=== PATIENT | male | born 1945 | race Caucasian/White ===

== ENCOUNTER → 2018-11-06 | Outpatient (CLI) | payer OTHER ==
[~2018-11-06] MED LIST: ACET325 PO; AMLO5 PO; ASCORBIC ACID PO; ASPI81CH PO; Advil200 M1 PO; CETI5 PO; IRON PO; LOSA50 PO; MULVITMIND PO; OMEG1CAP30 PO; OMEPRAZOLE MAGN20 MG PO; VITAMIN B COMPLEX PO
== END | disposition home or self-care (01) ==
LOC: LAB 18:13 → LAB SHORT 18:13
DX: R10.9 Unspecified abdominal pain (principal)
CPT/HCPCS: 87086

== ENCOUNTER 2019-05-11 08:52 | Day surgery (SDC) | payer OTHER ==
[~2019-05-11] VITALS: Ht 172.7 cm; Wt 64.9 kg
--- NOTE | 2019-05-11 12:42 | NUR ---
05/11/19 1241 Pia Nguyen 20ML NACL WITH 1ML INDIGO USED FOR POLYP REMOVALS.
--- NOTE | 2019-05-11 13:30 | NUR ---
05/11/19 3940 Niki Ribeiro LATE ENTRY---DURING STEP DOWN RECOVERY, PATIENT KEPT SAYING HE FELT "OUT OF SORTS" AND WHEN QUESTIONED MORE ABOUT THIS HE ADMITS TO BEING A LITTLE DIZZY, WASN'T READY TO GET DRESSED AND ASKED FOR MORE TIME TO "SHAKE THE COBWEBS OUT". PATIENT WAS ALLOWED MORE TIME AND WAS WALKED OUT WITH STAND BY ASSIST
== END 2019-05-11 13:15 | disposition home or self-care (01) ==
LOC: ORSCSDS 08:52
PROVIDERS: Student in an Organized Health Care Education/Training Program
PROC: 0DBM8ZX Excision of Descending Colon, Via Natural or Artificial Opening Endoscopic, Diagnostic (ICD-10-PCS; principal; 2019-05-11 10:30)
PROC: 0DBN8ZX Excision of Sigmoid Colon, Via Natural or Artificial Opening Endoscopic, Diagnostic (ICD-10-PCS; principal; 2019-05-11 10:30)
PROC: 0DBK8ZX Excision of Ascending Colon, Via Natural or Artificial Opening Endoscopic, Diagnostic (ICD-10-PCS; principal; 2019-05-11 10:30)
PROC: 0DBP8ZX Excision of Rectum, Via Natural or Artificial Opening Endoscopic, Diagnostic (ICD-10-PCS; principal; 2019-05-11 10:30)
PROC: 0DBH8ZX Excision of Cecum, Via Natural or Artificial Opening Endoscopic, Diagnostic (ICD-10-PCS; principal; 2019-05-11 10:30)
DX: R15.0 Incomplete defecation (principal); Z86.010 Personal history of colon polyps; D12.2 Benign neoplasm of ascending colon; D12.0 Benign neoplasm of cecum; D12.4 Benign neoplasm of descending colon; D12.5 Benign neoplasm of sigmoid colon; K63.5 Polyp of colon; K57.30 Diverticulosis of large intestine without perforation or abscess without bleeding; K64.8 Other hemorrhoids; I10 Essential (primary) hypertension; Z79.899 Other long term (current) drug therapy; Z79.82 Long term (current) use of aspirin
CPT/HCPCS: 88305; J2704; J7120

== ENCOUNTER → 2020-05-02 | Outpatient (CLI) | payer OTHER ==
[2020-05-02 21:36] LABS: BASOPHILS ABSOLUTE AUTO 0.04 K/mm3 (0.00-0.23); BASOPHILS PERCENT AUTO 1 % (0-2); EOSINOPHILS ABSOLUTE AUTO 0.22 K/mm3 (0.00-0.68); EOSINOPHILS PERCENT AUTO 3 % (0-6); Hematocrit 39.5 % (37.0-53.0); Hemoglobin 12.8 g/dL (13.5-17.5); IMMATURE GRAN ABSOLUTE AUTO 0.01 K/mm3 (0.00-0.10); IMMATURE GRAN PERCENT AUTO 0 % (0-1); LYMPHOCYTES ABSOLUTE AUTO 1.77 K/mm3 (0.84-5.20); LYMPHOCYTES PERCENT AUTO 22 % (21-46); MONOCYTES ABSOLUTE AUTO 0.73 K/mm3 (0.16-1.47); MONOCYTES PERCENT AUTO 9 % (4-13); Mean Corpuscular HGB 28.5 pg (26.0-34.0); Mean Corpuscular HGB Conc 32.4 g/dL (31.5-36.5); Mean Corpuscular Volume 88 fL (80-100); NEUTROPHILS ABSOLUTE AUTO 5.12 K/mm3 (1.96-9.15); NEUTROPHILS PERCENT AUTO 65 % (41-73); Platelet Count 359 K/mm3 (150-400); RDW Coefficient Variation 12.6 % (11.7-14.2); Red Blood Cell Count 4.49 M/mm3 (4.30-5.90); White Blood Cell Count 7.89 K/mm3 (4.00-11.30)
[2020-05-02 21:48] LABS: Alanine Aminotransfer (ALT/SGP 20 U/L (12-78); Albumin, Blood 4.1 g/dL (3.4-5.0); Albumin/Globulin Ratio 1.1 (0.8-1.8); Alk Phos 94 U/L (50-136); Anion Gap 4 mmol/L (6-16); Aspartate Aminotrans (AST/SGOT 12 U/L (12-37); Bilirubin, Total 0.3 mg/dL (0.1-1.0); Blood Urea Nitrogen 11 mg/dL (8-24); CO2, Blood 29 mmol/L (21-32); Calcium, Blood 9.2 mg/dL (8.5-10.1); Chloride, Blood 108 mmol/L (98-108); Creatinine, Blood 0.73 mg/dL (0.60-1.20); Globulin, Blood 3.9 g/dL (2.2-4.0); Glomerular Filtration Rate >60 (60-); Glucose, Blood 93 mg/dL (70-99); Sodium, Blood 141 mmol/L (136-145)
== END | disposition home or self-care (01) ==
LOC: LAB 20:07 → LAB SHORT 20:07
PROVIDERS: Family Medicine
DX: R10.9 Unspecified abdominal pain (principal)
CPT/HCPCS: 80053; 85025; 87086

== ENCOUNTER 2020-09-27 09:38 | Day surgery (SDC) | payer OTHER ==
[~2020-09-27] VITALS: Ht 172.7 cm; Wt 68.1 kg
[2020-09-27] MEDS ORDERED: FLONASE ALLERG9.9 M2 (10:35)
--- NOTE | 2020-09-27 10:38 | NUR ---
09/27/20 1038 Tonya Gaston PLEDGGAVINO PLACED IN RT EYE 1019, PT TOLERATED PLACEMENT WELL
== END 2020-09-27 11:44 | disposition home or self-care (01) ==
LOC: ORSCSDS 09:38
PROVIDERS: Counselor Professional
PROC: 08RJ3JZ Replacement of Right Lens with Synthetic Substitute, Percutaneous Approach (ICD-10-PCS; principal; 2020-09-27 10:45)
DX: H25.11 Age-related nuclear cataract, right eye (principal); I10 Essential (primary) hypertension; K21.9 Gastro-esophageal reflux disease without esophagitis; Z86.73 Personal history of transient ischemic attack (TIA), and cerebral infarction without residual deficits; Z79.82 Long term (current) use of aspirin; Z79.899 Other long term (current) drug therapy
CPT/HCPCS: A9270; J2001; J2250; J3010; V2632

== ENCOUNTER 2024-08-31 09:03 | Day surgery (SDC) | payer OTHER ==
[~2024-08-31] VITALS: Ht 172.7 cm; Wt 63.0 kg
[2024-08-31] VITALS (10 sets, daily range): BP systolic 126–150; BP diastolic 73–90
[~2024-08-31 09:03] MED LIST changes: +B-12500 MC2 PO; +FLONASE ALLERG9.9 M2; +GLUCHON PO; +LACT; +METAMUCIL; +METO25ER PO
[2024-08-31] MEDS ORDERED: Verapamil HCL 2.5 MG/ML 2ML Injection ONE (09:30)
[2024-08-31] MEDS ORDERED: NS 1,000 ML IV ONE ×2 (09:31→09:36)
[2024-08-31] MEDS ORDERED: Nitroglycerin 2 MG/20 ML BTL ONE (09:31)
[2024-08-31] MEDS ORDERED: Heparin Sodium 1000 Units/ML 10ML MDV ONE ×2 (09:31→10:35)
[2024-08-31] MEDS ORDERED: NS 250 ML IV ONE (09:31)
[2024-08-31] MEDS ORDERED: FentaNYL Citrate 50 MCG/ML 2 ML Injection ONE (09:35)
[2024-08-31] MEDS ORDERED: Midazolam HCl 1MG / ML 2ML Vial ONE (09:36)
--- NOTE | 2024-08-31 11:12 | NUR ---
pt arrives back to recovery room in bed, alert and oriented. sitting up in bed with TR Band in place with 11CC of air in band. PT site wnl, no oozing or swelling at this time. Pt. daughter to bedside. pt. vss. Dr. Mtz in to talk with pt regarding results of coronary angiogram.
--- NOTE | 2024-08-31 12:01 | NUR ---
TR band deflation intitated, 3cc removed at this time. Pt up to the bathroom to void, ambulates with out difficulty. Right radial site remains wnl.
--- NOTE | 2024-08-31 12:12 | NUR ---
TR band deflated at this time. Pt. VSS remain stable. Pt daughter remains at bedside.
--- NOTE | 2024-08-31 12:55 | NUR ---
PT AMBULATED TO BR TO VOID. R RAD TR BAND SITE NO HEMATOMA,NO PULSATILE BLEEDING WITH RIGHT WRIST BOARD IN PLACE.
--- NOTE | 2024-08-31 13:05 | NUR ---
Pt IV removed, Pt assisted to stand and get dressed. Right radial site remains wnl
--- NOTE | 2024-08-31 13:24 | NUR ---
Pt tr band removed site wnl, no oozing no hematoma. bandage placed. arm board given to pt for discharge. pt. discharge instructions reviewed with pt and family. no further questions. pt taken via wheelchair by volunteer to exit. pt daughter to drive pt home.
== END 2024-08-31 13:30 | disposition home or self-care (01) ==
LOC: MHTC 09:03
DX: I25.10 Atherosclerotic heart disease of native coronary artery without angina pectoris (principal); R94.39 Abnormal result of other cardiovascular function study; R55 Syncope and collapse; I10 Essential (primary) hypertension; E78.5 Hyperlipidemia, unspecified; K21.9 Gastro-esophageal reflux disease without esophagitis; Z79.82 Long term (current) use of aspirin; Z79.899 Other long term (current) drug therapy; Z88.5 Allergy status to narcotic agent; Z88.8 Allergy status to other drugs, medicaments and biological substances
CPT/HCPCS: 76937; 85347; 93458; 93571; 99152; 99153; C1769; C1887; C1894; J1644; J2250; J3010; J7030; J7050; Q9967

== ENCOUNTER 2024-11-30 07:11 | Day surgery (SDC) | payer OTHER ==
[2024-11-30] VITALS (19 sets, daily range): BP systolic 116–149; BP diastolic 64–86
[~2024-11-30] VITALS: Ht 172.7 cm; Wt 64.9 kg
[~2024-11-30 07:11] MED LIST changes: +ATOR10 PO
[2024-11-30] MEDS ORDERED: NS 250 ML IV ONE (07:18)
[2024-11-30] MEDS ORDERED: NS 1,000 ML IV ONE ×3 (07:18→10:11)
[2024-11-30] MEDS ORDERED: Nitroglycerin 2 MG/20 ML BTL ONE (07:18)
[2024-11-30] MEDS ORDERED: Verapamil HCL 2.5 MG/ML 2ML Injection ONE (07:18)
[2024-11-30] MEDS ORDERED: Heparin Sodium 1000 Units/ML 10ML MDV ONE ×3 (07:18→09:24)
[2024-11-30] MEDS ORDERED: CLOP75 PO (07:42)
[2024-11-30] MEDS ORDERED: Aspirin 81 MG Chew ONE (07:42)
[2024-11-30] MEDS ORDERED: Clopidogrel Bisulfate 75 MG Tab ONE (07:45)
[2024-11-30] MEDS ORDERED: Midazolam HCl 1MG / ML 2ML Vial ONE (08:00)
[2024-11-30] MEDS ORDERED: FentaNYL Citrate 50 MCG/ML 2 ML Injection ONE (08:00)
[2024-11-30] MEDS ORDERED: NS 500 ML IV ONE (09:24)
--- NOTE | 2024-11-30 10:30 | NUR ---
PATIENT BACK TO RECOVERY ROOM AT 1020 S/P PCI WITH 5 STENTS PLACED; 4 TO RCA, 1 TO PROX CIRC. PT AWAKE AND ALERT. DENIES C/O PAIN, DENIES CHEST PAIN. PT C/O FEELING COLD, WARM BLANKETS PLACED. PT HYPOTENSIVE AT END OF CASE W LAST MAP 63. FIRST BP IN RECOVERY ROOM 119/66, HR 60'S, PT DENIES SYMPTOMS. 1 LITER GIVEN IN TUBE DRAWER, ADDITIONAL 500CC NS ORDERED BY DR ROMERO WHOM IS AT BEDSIDE. TR BAND SITE TO RIGHT RADIAL REVIEWED, SITE WNL, WITHOUT SWELLING, BLEEDING, HEMATOMA, OR TENDERNESS. CIRC CHECK TO RIGHT HAND WNL. FAMILY AT BEDSIDE NOW, PATIENT TOLERATING COFFEE.
--- NOTE | 2024-11-30 10:48 | NUR ---
DR ROMERO AT BEDSIDE SPEAKING WITH PATIENT AND PT'S FAMILY.
--- NOTE | 2024-11-30 12:13 | NUR ---
Began deflating TR band from R radial site. no bleeding or hematoma.
--- NOTE | 2024-11-30 12:39 | NUR ---
Pt began bleeding after TR band fully deflated. 9cc air replaced. no hematoma. will continue to monitor.
--- NOTE | 2024-11-30 12:40 | NUR ---
9cc air to TR band after failed attempted to remove air from balloon. Wrist prox/distal to band soft without hematoma. Patient denies pain to wrist and hand. Pt denies numbness to right hand, hand pink with good cap refill and good pleth.
--- NOTE | 2024-11-30 13:15 | NUR ---
PT UP TO RESTROOM, PT FORGETFUL WITH INSTRUCTIONS NOT TO USE RIGHT WRIST. SLING PLACED TO HELP PT REMEMBER. PT OOB TO VOID FOR THE SECOND TIME; CAILIN WELL W/O ISSUES. RIGHT WRIST REMAINS STABLE. 2CC AIR REMOVED AT 1315 W/O ISSUES.
--- NOTE | 2024-11-30 13:50 | NUR ---
ALL AIR REMOVED OVER 30MIN, TR BAND COMPLETELY DEFLATED AT 1345. SITE STABLE W/O BLEEDING, HEMATOMA, SWELLING, OR PAIN.
--- NOTE | 2024-11-30 14:45 | NUR ---
VERBAL AND WRITTEN DISCHARGE INSTRUCTIONS GIVEN TO PATIENT AND PT'S FAMILY WITH CLEAR UNDERSTANDING. OFFICE TO CALL WITH FOLLOW UP APPOINTMENT. OFFICE TO REFILL PLAVIX PRESCRIPTION PER . PATIENT HAS SOFT AREA OF SWELLING LESS THAN 0.5CM OVER INSERTION SITE, AGAIN, AREA IS VERY SOFT. AREA REVIEWED WITH RENETTA MELCHOR. LIGHT PRESSURE DRSG PLACED OVER DRSG FOR ADDED PROTECTION WITH INSTRUCTIONS TO REMOVE TONIGHT OR BEFORE IF PT EXPERIENCES ANY TINGLING IN HAND. WHEN TO CALL MD AND INSTRUCTIONS FOR RADIAL ARTERY CARE REVIEWED AGAIN JUST PRIOR TO DISCHARGE. WRIST IMMOBILIZER PLACED FOLLOWED BY SLING. PT ESCORTED OUT VIA WHEELCHAIR AND CARE HANDED OVER TO FAMILY TO DRIVE PT HOME AT 1500.
== END 2024-11-30 15:19 | disposition home or self-care (01) ==
LOC: MHTC 07:11
DX: I25.10 Atherosclerotic heart disease of native coronary artery without angina pectoris (principal); I10 Essential (primary) hypertension; E78.00 Pure hypercholesterolemia, unspecified; K21.9 Gastro-esophageal reflux disease without esophagitis; R73.03 Prediabetes; Z85.46 Personal history of malignant neoplasm of prostate; Z79.82 Long term (current) use of aspirin; Z79.899 Other long term (current) drug therapy; Z88.5 Allergy status to narcotic agent; Z88.8 Allergy status to other drugs, medicaments and biological substances
CPT/HCPCS: 76937; 85347; 92921; 92978; 92979; 93454; 99152; 99153; A9270; C1725; C1753; C1769; C1874; C1887; C1894; C9600; J1644; J2250; J3010; J7030; J7040; J7050; Q9967